=== PATIENT | female | born 1985 | race Hispanic/Latino ===

== ENCOUNTER 2022-08-21 07:41 | Emergency (ER) | payer OTHER ==
[~2022-08-21] VITALS: Ht 152.4 cm; Wt 54.9 kg
[2022-08-21 07:52] VITALS: BP 109/64
== END 2022-08-21 08:49 | disposition left against medical advice (07) ==
LOC: EDH 07:41
DX: S09.93XA Unspecified injury of face, initial encounter (principal); W22.03XA Walked into furniture, initial encounter; Y93.89 Activity, other specified; Y92.89 Other specified places as the place of occurrence of the external cause; Y99.8 Other external cause status